=== PATIENT | male | born 1970 | race Caucasian/White ===

== ENCOUNTER 2024-07-12 22:11 | Emergency (ER) | payer SELFPAY ==
--- OUTSIDE RECORDS SUMMARY | 2024-07-12 22:14 | XMS REPORT | Continuity of Care Document ---
Author Name Unknown Address [address] [facility] [address] [place] [address] [facility] thconnect Address [address] [facility]. [address] [place] [address] Care Team Providers Care Youth Worker Name Role Phone CAL CARREON Primary Care Physician Aryan saleh RADIOLOGY Attending Clinician Unavailable Radiology Attending Clinician Unavailable ALICIA MERCADO Attending Clinician Unavailable BRITT GARCIA Admitting Clinician Unavailable Payers Payer Name Policy Type Policy Number Effective Date Expirati on Date Source [facility] [id number] 2020 00:00:00 Allergies, Adverse Reactions, Alerts Allergy Name Allergy Type Status Severity Reaction(s) Onset Date Inactive Date Treating Clinician Comments Source NO KNOWN ALLERGIE S Drug Class Active [facility] Social History Social Habit Start Date Stop Date Quantity Comments Source Sexual orientation [facility] Sex Assigned At 1970 00:00:00 1970 00:00:00 [facility] Smoking Status Start Date Stop Date Source Tobacco smoking consumption unknown [facility] Medications Ordered Medication Name Filled Medication Name Start Date Stop Date Current Medication? Ordering Clinician Indication Dosage Frequency Signature (SIG) Comments Components Source cefTRIAXone (ROCEPHIN) 1,000 mg in NaCl 0.9% (NS) 100 mL MINI-BAG 2022-07 23:00: 00 05-29 01:39 :00 No 1000mg 1,000 mg, IV Piggyback, ONCE, 1 dose, On Sun05/28/23 at 1700, Administer over 30 Minutes, 100 mL
Reas on for Anti-Infec tive: Documented Infection< br>Documen juli Infection Site: Urine
D uration of Therapy: 10 days [facility] sodium chloride (NS) injection 5 mL 2022-07 21:33: 53 Yes 5mL 5 mL, Intravenou s, PRN, Starting on 05/28/23 at 1533, Until Discontinu ed, Routine, IV line flushing [facility] ciprofloxac in HCl 500 mg tablet 2022-07 00:00: 00 06-08 05:59 :00 No [id number] 500mg Take 1 tablet by mouth in the morning and 1 tablet in the evening. Do all this for 10 days. [facility] Immunizations Ordered Immunization Name Filled Immunization Name Date Status Comments Source SARS-COV-2 COVID-19 PFIZER VACCINE Unknown Completed [facility] SARS-COV-2 COVID-19 PFIZER VACCINE Unknown Completed [facility] Vital Signs Vital Name Observation Time Observation Value Comments S ource Systolic blood pressure 2023-05-29 02:00:00 167 mm[Hg] [facility] Diastolic blood pressure 2023-05-29 02:00:00 86 mm[Hg] [facility] Heart rate 2023-05-29 02:00:00 92 /min [facility] Body temperature 2023-05-29 02:00:00 37.67 Lisette [facility] Respiratory rate 2023-05-29 02:00:00 16 /min [facility] Oxygen saturation in Arterial blood by Pulse oximetry 2023-05-29 02:00:00 98 /min [facility] Body height 2023-05-28 20:48:00 182.9 cm [facility] Body weight 2023-05-28 20:48:00 120.203 kg [facility] BMI 2023-05-28 20:48:00 35.94 kg/m2 [facility] Procedures Procedure Date / Time Performed Performing Clinician Source CT TEMPORAL BONES WO CONTRAST 2023-06-25 14:32:04 Britt Garcia [facility] PATIENT FINANCIAL POLICY 2023-06-25 13:34:46 Doctor Unassigned, [place] [facility] NO SHOW OR MISSED APPOINTMENT POLICY ACKNOWLEDGEMENT 2023-06-25 13:34:22 Doctor Unassigned, [place] [facility] CONSENT/REFUSAL FOR DIAGNOSIS AND TREATMENT 2023-06-25 13:34:01 Doctor Unassigned, [place] [facility] ASSIGNMENT OF BENEFITS 2023-06-25 13:33:44 Docto r Unassigned, [place] [facility] LIPASE 2023-05-28 22:15:00 Alicia Mercado [facility] COMP. METABOLIC PANEL ([id number]) 2023-05-28 22:15:00 Alicia Mercado [facility] CBC WITH DIFF 2023-05-28 22:15:00 Alicia Mercado [facility] ASSIGNMENT OF BENEFITS 2023-05-28 21:45:24 Docto r Unassigned, [place] [facility] URINALYSIS 2023-05-28 21:24:00 Alicia Mercado [facility] NOTICE OF PRIVACY PRACTICES 2023-05-28 20:39:03 Doctor Unassigned, [place] [facility] CONSENT/REFUSAL FOR DIAGNOSIS AND TREATMENT 2023-05-28 20:38:29 Doctor Unassigned, [place] [facility] Encounters Start Date/Time End Date/Time Encounter Type Admission Type Attending [facility] Care Facility Care Department Encounter ID Source 2023-06-25 07:36:53 2023-06-25 23:59:00 Outpatient R RADIOLOGY [facility] [id number] [facility] 2023-06-25 07:36:53 2023-06-25 23:59:00 Hospital Encounter Radiology [facility] [id number] [facility] 2023-05-28 14:52:00 2023-05-28 20:16:00 Emergency X ALICIA MERCADO ERT [id number] [facility] 2023-05-28 14:52:00 2023-05-28 20:16:00 Emergency Alicia Mercado [facility] [id number] [facility] Results Test Description Test Time Test Comments Results Result Co mments Source [id number] 22:52:19* Test Item Value Reference Range Interpretation Comme nts LIPASE (test code = 9983205665) 96 U/L 0-220 Lab Interpretation (test cod e = 67386-5) Normal [facility] [id number] 22:43:58* Test Item Value Reference Range Interpretation Comme nts WBC (test code = 6690-2) 10.41 See_Comment [Automated messa ge] The system which generated this result transmitted reference range: 4.20 - 10.70 10*3/?L. The reference range was not used to interpret this result as normal/abnormal. RBC (test code = 789-8) 4.02 See_Comment L [Automated messa ge] The system which generated this result transmitted reference range: 4.26 - 5.52 10*6/?L. The reference range was not used to interpret this result as normal/abnormal. HGB (test code = 718-7) 15.7 g/dL 12.2-16.4 HCT (test code = 4544-3) 44.2 % 38.4-49.3 MCV (test code = 787-2) 110.0 fL 81.7-95.6 H MCH (test code = 785-6) 39.1 pg 26.1-32.7 H MCHC (test code = 786-4) 35.5 g/dL 31.2-35.0 H RDW-SD (test code = 95977-6) 58.9 fL 38.5-51.6 H RDW-CV (test code = 788-0) 14.4 % 12.1-15.4 PLT (test code = 777-3) 189 See_Comment [Automated messa ge] The system which generated this result transmitted reference range: 150 - 328 10*3/?L. The reference range was not used to interpret this result as normal/abnormal. MPV (test code = 97103-4) 9.5 fL 9.8-13.0 L NRBC/100 WBC (test code = 2059415541) 0.0 See_Comment [Automated me ssage] The system which generated this result transmitted reference range: 0.0 - 10.0 /100 WBCs. The reference range was not used to interpret this result as normal/abnormal. NRBC x10^3 (test code = 2217206394) See_Comment [Automated messa ge] The system which generated this result transmitted reference range: 10*3/?L. The reference range was not used to interpret this result as normal/abnormal. GRAN MAT (NEUT) % (test code = 770-8) 74.3 % IMM GRAN % (test code = 4831547527) 0.60 % LYMPH % (test code = 736-9) 14.0 % MONO % (test code = 5905-5) 9.3 % EOS % (test code = 713-8) 1.4 % BASO % (test code = 706-2) 0.4 % GRAN MAT x10^3(ANC) (test code = 9387164705) 7.73 10*3/uL 1.99-6.95 H IMM GRAN x10^3 (test code = 3936146039) 0.06 10*3/uL 0.00-0.06 LYMPH x10^3 (test code = 731-0) 1.46 10*3/uL 1.09-3.23 MONO x10^3 (test code = 742-7) 0.97 10*3/uL 0.36-1.02 EOS x10^3 (test code = 711-2) 0.15 10*3/uL 0.06-0.53 BASO x10^3 (test code = 704-7) 0.04 10*3/uL 0.01-0.09 Lab Interpretation (test code = 14837-8) Abnormal [facility]
[2024-07-12] MEDS ORDERED: ONDANSETRON 4 MG/2 ML VIAL ONE (23:08)
[2024-07-12] MEDS ORDERED: NA CHLORIDE 0.9% 2,000 ML ONE (23:09)
[2024-07-12] MEDS ORDERED: FAMOTIDINE 20 MG/2 ML VIAL IV ONE (23:09)
[2024-07-12] MEDS ORDERED: PANTOPRAZOLE 40 MG INJ ONE (23:09)
[2024-07-12] MEDS ORDERED: TRANEXAMIC ACID 1,000 MG/10 ML VIAL IV ONE (23:09)
[2024-07-12] MEDS ORDERED: NA CHLORIDE 0.9% 250 ML ONE (23:09)
[2024-07-12] MEDS ORDERED: NA CHLORIDE 0.9% 100 ML ONE (23:10)
[2024-07-12 23:29] LABS: Absolute Lymphocytes (CBC) 0.7 K/uL (0.7-4.9); Absolute Monocytes 0.8 K/uL (0.1-1.3); Basophils % 0.3 % (0-1.3); Eosinophils % 0.3 % (0-4.4); Hematocrit 24.2 % (39.6-49.0); Hemoglobin 8.4 g/dL (13.6-17.9); Lymphocytes % 4.4 % (15.3-44.8); MCH 44.8 pg (27.0-35.0); MCHC 34.6 g/dL (32.0-36.0); MCV 129.6 fL (80-100); MPV 9.2 fL (7.6-11.3); Monocytes % 5.2 % (3.3-12.3); Neutrophils % 89.8 % (41.7-73.7); Nucleated Red Blood Cells % 0.2 % (0-0); Platelets 219 thou/uL (152-406); RBC Red Blood Cell Count 1.87 M/uL (4.33-5.43); Red Cell Distribution Width 16.9 % (12.1-15.2)
[2024-07-12 23:37] LABS: Albumin 1.4 g/dL (3.4-5.0); Albumin/Globulin Ratio 0.3 (1.1-1.8); Anion Gap 21.9 mEq/L (5.0-15.0); Bilirubin Total 10.7 mg/dL (0.2-1.0); Globulin 4.1 g/dL (2.3-3.5); Potassium 3.9 mEq/L (3.5-5.1); Protein, Total 5.5 g/dL (6.4-8.2)
[2024-07-12] MEDS ORDERED: ALBUMIN HUMAN 25% 100 ML IV ONE (23:39)
[2024-07-12 23:40] LABS: PT Prothrombin Time 24.2 SECONDS (9.4-12.5); PTT, Activated Partial Thromb 43.9 SECONDS (24.3-36.9); Protime INR 2.21
[2024-07-13] MEDS ORDERED: NA CHLORIDE 0.9% 250 ML ONE (00:23)
[2024-07-13] MEDS ORDERED: NA CHLORIDE 0.9% 500 ML ONE ×2 (00:43→01:56)
--- NOTE | 2024-07-13 01:13 | RAD REPORT ---
EXAM: CT Chest, Abdomen and Pelvis Without Intravenous Contrast CLINICAL HISTORY: The patient is 53 years old and is Male; ABDOMINAL DISTENTION TECHNIQUE: Axial computed tomography images of the chest, abdomen and pelvis without intravenous contrast. S agittal and coronal reformatted images were created and reviewed. This CT exam was performed using one or more of the following dose reduction techniques: automated exposure control, adjustmen t of the mA and/or kV according to patient size, and/or use of iterative reconstruction technique. COMPARISON: No relevant prior studies available. FINDINGS: CHEST: LUNGS: Atelectasis within the right lower lobe is noted. The lungs are otherwise well-inflated an d clear. PLEURAL SPACE: A large right pleural effusion is present. A trace left pleural effusion is noted. No pneumothorax. HEART: No cardiomegaly. No pericardial effusion. ABDOMEN: LIVER: The liver is enlarged and heterogeneous. Subtle low attenuating lesions are scattered thro ughout the liver. GALLBLADDER AND BILE DUCTS: Multiple calcified gallstones are present within the gallbladder. The re is no ductal dilatation. PANCREAS: Unremarkable. No ductal dilation. SPLEEN: The spleen is enlarged. ADRENALS: Unremarkable. No mass. KIDNEYS AND URETERS: No obstructing stones. No hydronephrosis. No perinephric fluid. STOMACH AND BOWEL: The stomach is minimally distended with food contents. The small bowel is norm al in caliber. Stool is present throughout the colon. Scattered colonic diverticula are noted without surrounding inflammation. There is no mucosal thickening or evidence of obstruction. PELVIS: APPENDIX: The appendix is normal in caliber without surrounding inflammation. BLADDER: A Dalton catheter is present within the bladder which is decompressed. No stones. REPRODUCTIVE: Unremarkable as visualized. CHEST, ABDOMEN and PELVIS: INTRAPERITONEAL SPACE: A moderate to large amount of ascites is present throughout the abdomen an d pelvis. No free air. BONES/JOINTS: Multilevel degenerative changes spine is present. There is no acute fracture. SOFT TISSUES: Mild body wall edema is present. A fluid containing umbilical hernia is present. Subcutaneous air along the left gluteal fold is present. Ill-defined fluid and air collection along the left perineum measuring approximately 2.4 x 1.7 cm is present. VASCULATURE: Atherosclerosis of the vasculature is present. The vessels are normal in caliber. No aortic aneurysm. LYMPH NODES: Unremarkable. No enlarged lymph nodes. TUBES, LINES AND DEVICES: A right IJ central venous catheter is present with the tip in the SVC. IMPRESSION: 1. Findings suggest left perineal abscess with subcutaneous air along the left gluteal fold. Underl coco developing Robbie gangrene is within the differential. 2. Innumerable ill-defined low attenuating lesions throughout the liver. These are not clearly cyst s. Within the differential includes multiple metastatic foci. Correlation with patient history and further evaluation is recommended. 3. Large right pleural effusion with associated right lower lobe atelectasis. 4. Large volume ascites with hepatosplenomegaly. 5. Cholelithiasis. Electronically signed by: Kassidy Buckner MD 07/13/2024 01:00 AM [facility] Due to temporary technical issues with the [employer] reporting system, reports are being pipo d by the in-house radiologist without review as a courtesy to ensure prompt reporting the interpreting radiologist is fully responsible for the content of the report. Transcribed Date/Time: 07/13/2024 1:13 AM
[2024-07-13] MEDS ORDERED: NOREPINEPHRINE BITARTRATE/D5W 4 MG/250 ML KIT IV ONE ×3 (01:14→05:01)
[2024-07-13 01:15] LABS: Specific Gravity 1.022 (1.005-1.030); Urine Bacteria None Seen /HPF (<20); Urine Bilirubin 2+ (Negative); Urine Blood Trace (Negative); Urine Clarity Extremely Turbid (Clear); Urine Color Dark-Orange (Yellow); Urine Crystals Unidentified Moderate /HPF (None Seen); Urine Culture Reflex Order NOT NEEDED; Urine Glucose TRACE (Negative); Urine Granular Casts 0-5 /LPF (None Seen); Urine Ketones NEGATIVE (Negative); Urine Microscopic Reflex YN ORDER UMIC; Urine Mucus 1+ /HPF (None Seen); Urine Nitrite NEGATIVE (Negative); Urine Protein TRACE (Negative); Urine RBC <5 /HPF (None Seen); Urine Urobilinogen 2+ (Normal)
[2024-07-13 01:16] LABS: Barbiturates NEGATIVE (NEGATIVE); Benzodiazepines NEGATIVE (NEGATIVE); Cocaine NEGATIVE (NEGATIVE); METHAMPHETAM NEGATIVE (NEGATIVE); Methadone NEGATIVE (NEGATIVE); Opiates NEGATIVE (NEGATIVE); Phencyclidine NEGATIVE (NEGATIVE); THC Cannibis NEGATIVE (NEGATIVE)
--- NOTE | 2024-07-13 01:51 | EDPHYS ---
Physician Documentation [facility] Name: Sushil Power Age: 53 yrs Sex: Male : 1970 Arrival Date: 07/12/2024 Time: 22:11 Bed 3 Private MD: ED Physician Kamlesh Keenan HPI: 07/12 22:23 This 53 yrs old Male presents to ER via Unassigned with complaints of LOW sp4 BLOOD PRESSURE. 07/13 01:38 53-year-old male with history of alcoholism and hypertension presents with acute sp4 gastrointestinal bleed. Patient states he was sitting on the commode and nearly passed out. Patient reported rectal bleeding and bloody stools. On arrival patient is jaundiced and has prominent icterus. Patient states she developed jaundice approximately Thanksgiving in May. Reported sporadic bloody stools since then.. Historical: - Allergies: 07/12 22:25 No Known Allergies; ha1 - PMHx: 22:25 Alcoholism; Hypertensive disorder; ha1 - Immunization history:: Adult Immunizations not up to date. - Infectious Disease History:: Denies. - Social history:: Smoking status: Patient reports the use of cigarette tobacco products, smokes one-half pack cigarettes per day. - Family history:: not pertinent. - Unable to obtain history due to: altered mental status. ROS: 07/13 01:38 Constitutional: Negative for fever, chills, and weight loss, positive for rectal sp4 bleeding, positive for near syncope, positive for jaundice, positive for bloody stools All other systems are negative, Exam: 01:38 Constitutional: Ill-appearing male, diffusely jaundiced, toxic appearing, hypotensive sp4 on arrival, confused and delirious , initial exam reveals dark red blood per rectum Head/Face: Normocephalic, atraumatic. Eyes: Pupils equal round and reactive to light, extra-ocular motions intact. Lids and lashes normal. Conjunctiva -prominent icterus. cornea within normal limits. Periorbital areas with no swelling, redness, or edema. ENT: Nares patent. No nasal discharge, no septal abnormalities noted. Tympanic membranes are normal and external auditory canals are clear. Oropharynx with no redness, swelling, or masses, exudates, or evidence of obstruction, uvula midline. Mucous membranes moist. Neck: Trachea midline, no thyromegaly or masses palpated, and no cervical lymphadenopathy. Supple, full range of motion without nuchal rigidity, or vertebral point tenderness. Chest/axilla: Normal chest wall appearance and motion. Nontender with no deformity. No lesions are appreciated. Cardiovascular: Regular rate and rhythm with a normal S1 and S2. No gallops, murmurs, or rubs. Normal PMI, no JVD. No pulse deficits. Respiratory: Lungs have equal breath sounds bilaterally, clear to auscultation and percussion. No rales, rhonchi or wheezes noted. No increased work of breathing, no retractions or nasal flaring. Abdomen/GI: Soft, with normal bowel sounds. No distension or tympany. No guarding or rebound. Diffuse ascites and abdominal distention, caput medusa Back: No spinal tenderness. No costovertebral tenderness. Male : Normal genitalia with no discharge, normal exam of the scrotum, exam of perineum reveals left perineal lesion oozing bloody fluid, there is some crepitation, diffuse perineal redness and swelling. Tenderness to palpation. No sign of drainable abscess. Skin: Warm, dry with normal turgor. Normal color with no rashes, no lesions, and no evidence of cellulitis. MS/ Extremity: Pulses equal, no cyanosis. Neurovascular intact. Full, normal range of motion. Neuro: Awake and alert, GCS 15, oriented to person, place,. Cranial nerves II-XII grossly intact. Motor strength 5/5 in all extremities. Sensory grossly intact. No sign of localized deficits Psych: Awake, alert, with orientation to person, place generally confused 01:38 ECG was reviewed by the Attending Physician. EKG at 0 136 prolonged QT sinus rhythm rate 92 Vital Signs: 07/12 22:12 BP 121 / 102; Pulse 102; Resp 19 S; Temp 98.6(O); Pulse Ox 96% on R/A; Weight 111.13 ha1 kg; Height 5 ft. 11 in. ; 22:15 BP 87 / 44; Pulse 95; Resp 17; Pulse Ox 98% on R/A; kmf 22:20 BP 95 / 41; Pulse 94; Resp 16; Pulse Ox 97% on R/A; kmf 23:47 BP 89 / 53; Pulse 87; Resp 19; Temp 98.6; Pulse Ox 97% ; Pain 0/10; bm8 05 01:10 BP 69 / 52; Pulse 88; Resp 17; Temp 98.8; Pulse Ox 100% on 4 lpm NC; Pain 0/10; bm8 01:23 BP 111 / 55; Pulse 88; Resp 18; Temp 98.8; Pulse Ox 100% on 4 lpm NC; Pain 0/10; bm8 01:41 BP 131 / 97; Pulse 92; Resp 15; Pulse Ox 100% on 4 lpm NC; kmf 02:19 BP 132 / 53; Pulse 94; Resp 18; Temp 98.8; Pulse Ox 100% ; Pain 0/10; bm8 04:08 BP 103 / 65; Pulse 99; Resp 18; Temp 98.9; Pulse Ox 100% on 4 lpm NC; Pain 0/10; bm8 05:05 BP 101 / 50; Pulse 88; Resp 19; Temp 98.8; Pulse Ox 100% on 4 lpm NC; Pain 0/10; bm8 07/12 22:12 Body Mass Index 34.17 (111.13 kg, 180.34 cm) ha1 23:47 Pain Scale: Adult bm8 01/05 01:10 Pain Scale: Adult bm8 01:23 Pain Scale: Adult bm8 02:19 Pain Scale: Adult bm8 04:08 Pain Scale: Adult bm8 05:05 Pain Scale: Adult bm8 Mac Coma Score: 07/12 23:42 Eye Response: spontaneous(4). Motor Response: obeys commands(6). Verbal Response: bm8 oriented(5). Total: 15. 23:47 Eye Response: spontaneous(4). Motor Response: obeys commands(6). Verbal Response: bm8 oriented(5). Total: 15. 05 01:15 Eye Response: spontaneous(4). Motor Response: obeys commands(6). Verbal Response: bm8 oriented(5). Total: 15. 01:23 Eye Response: spontaneous(4). Motor Response: obeys commands(6). Verbal Response: bm8 oriented(5). Total: 15. 01:38 Eye Response: spontaneous(4). Motor Response: obeys commands(6). Verbal Response: sp4 confused(4). Total: 14. 02:19 Eye Response: spontaneous(4). Motor Response: obeys commands(6). Verbal Response: bm8 oriented(5). Total: 15. 04:08 Eye Response: spontaneous(4). Motor Response: obeys commands(6). Verbal Response: bm8 oriented(5). Total: 15. 05:05 Eye Response: spontaneous(4). Motor Response: obeys commands(6). Verbal Response: bm8 oriented(5). Total: 15. Procedures: 07/12 23:03 Central Line: the site was prepped with Betadine, in sterile fashion, a triple lumen sp4 catheter was inserted, in the right internal jugular vein, in 1 attempts. placement was verified, by CXR, by blood return, Ultrasound-guided central line. , the site was dressed with 4X4s, Tegaderm, using sterile technique, the patient tolerated the procedure, well, Ultrasound-guided central line placed secondary to exhausted peripheral access. MDM: 22:25 Medical Screening Exam initiated sp4 07/13 01:36 ED course: COMPARISON: No relevant prior studies available. FINDINGS: CHEST: LUNGS: sp4 Atelectasis within the right lower lobe is noted. The lungs are otherwise well-inflated and clear. PLEURAL SPACE: A large right pleural effusion is present. A trace left pleural effusion is noted. No pneumothorax. HEART: No cardiomegaly. No pericardial effusion. ABDOMEN: LIVER: The liver is enlarged and heterogeneous. Subtle low attenuating lesions are scattered throughout the liver. GALLBLADDER AND BILE DUCTS: Multiple calcified gallstones are present within the gallbladder. There is no ductal dilatation. PANCREAS: Unremarkable. No ductal dilation. SPLEEN: The spleen is enlarged. ADRENALS: Unremarkable. No mass. KIDNEYS AND URETERS: No obstructing stones. No hydronephrosis. No perinephric fluid. STOMACH AND BOWEL: The stomach is minimally distended with food contents. The small bowel is normal in caliber. Stool is present throughout the colon. Scattered colonic diverticula are noted without surrounding inflammation. There is no mucosal thickening or evidence of obstruction. PELVIS: APPENDIX: The appendix is normal in caliber without surrounding inflammation. BLADDER: A Dalton catheter is present within the bladder which is decompressed. No stones. REPRODUCTIVE: Unremarkable as visualized. CHEST, ABDOMEN and PELVIS: INTRAPERITONEAL SPACE: A moderate to large amount of ascites is present throughout the abdomen and pelvis. No free air. BONES/JOINTS: Multilevel degenerative changes spine is present. There is no acute fracture. SOFT TISSUES: Mild body wall edema is present. A fluid containing umbilical hernia is present. Subcutaneous air along the left gluteal fold is present. Ill-defined fluid and air collection along the left perineum measuring approximately 2.4 x 1.7 cm is present. VASCULATURE: Atherosclerosis of the vasculature is present. The vessels are normal in caliber. No aortic aneurysm. LYMPH NODES: Unremarkable. No enlarged lymph nodes. TUBES, LINES AND DEVICES: A right IJ central venous catheter is present with the tip in the SVC. IMPRESSION: 1. Findings suggest left perineal abscess with subcutaneous air along the left gluteal fold. Underlying developing Robbie gangrene is within the differential. 2. Innumerable ill-defined low attenuating lesions throughout the liver. These are not clearly cysts. Within the differential includes multiple metastatic foci. Correlation with patient history and further evaluation is recommended. 3. Large right pleural effusion with associated right lower lobe atelectasis. 4. Large volume ascites with hepatosplenomegaly. 5. Cholelithiasis. Electronically signed by: Kassidy Buckner MD 07/13/2024 01:00 AM [facility]OLE[facility]LOOR [facility]ER . ED course: CLINICAL HISTORY: Right central line. COMPARISON: None. TECHNIQUE: XR CHEST 1 VIEW 07/12/2024 11:03 PM LINOLEUM FLOOR LAYER FINDINGS: Cardiac silhouette is normal in size. There is probable right basilar airspace disease. There is a moderate right pleural effusion. There is no pneumothorax. There are no acute osseous findings. Right IJ central line tip is in the mid SVC. IMPRESSION: No pneumothorax following right IJ central line placement.. 01:45 Differential diagnosis: asthma, Bronchitis CHF exacerbation, Chronic Obstructive sp4 Pulmonary Disease Myocardial Infarction pneumonia, Pneumothorax pulmonary edema. Antibiotic administration: Vancomycin and cefepime administered. Data reviewed: vital signs, nurses notes, EMS record, old medical records, lab test result(s), EKG, radiologic studies, CT scan, plain films. Consideration of Admission/Observation Patient was admitted/placed on observation. Escalation of care including admission/observation considered. Management of patient was discussed with the following: Multilith Operator: [facility] [place]'s attending physician. ED course: Patient found to have anemia, active lower GI bleed, 2 units of packed red cells transfused emergently. Additionally we have hepatorenal failure, right pleural effusion, also signs of a left perineal abscess with subcutaneous air. Possibly necrotizing fasciitis. Additionally there is multiple liver lesions suggestive of metastatic disease, right pleural effusion is large and associated with atelectasis. Large volume ascites and hepatosplenomegaly, patient warrants emergent transfer for higher level of care for consultation with general surgery, additional consultation with hepatology intensive care management and also consultation with nephrology.. 02:46 ED course: CT SOFT TISSUES: Mild body wall edema is present. A fluid containing sp4 umbilical hernia is present. Subcutaneous air along the left gluteal fold is present. Ill-defined fluid and air collection along the left perineum measuring approximately 2.4 x 1.7 cm is present. . ED course: I had discussion with [facility] with general surgery service and intensive care. The patient was accepted for transfer at this time patient stable for aeromedical transfer. Last blood pressure 128/55.. 07/12 22:26 Order name: Type And Screen [facility] 07/12 22:26 Order name: CBC with Diff; Complete Time: 04:32 [facility] 07/12 22:26 Order name: CMP; Complete Time: 00: 4 07/12 22:26 Order name: Lipase; Complete Time: 00: 4 07/12 22:26 Order name: Urinalysis w/ reflexes; Complete Time: : 4 07/12 22:26 Order name: PT-INR; Complete Time: 00: 4 07/12 22:26 Order name: Ptt, Activated; Complete Time: 00: 4 07/12 22:26 Order name: AMMONIA; Complete Time: 00: 4 07/12 22:29 Order name: Alcohol Level; Complete Time: 00: 4 07/12 22:29 Order name: Urine Drug Screen; Complete Time: : 4 07/13 00:17 Order name: Packed RBC Leukored EDND 07/13 01:20 Order name: ABO/RH no charge; Complete Time: : EDMS 07/13 04:23 Order name: CBC Smear Scan; Complete Time: 04:32 EDMS 07/12 23:03 Order name: Chest Single View XRAY sp4 07/13 00:01 Order name: Chest Abd Pelvis Wo Con; Complete Time: : EDMS 07/13 01:29 Order name: EKG; Complete Time: 01:30 sp4 07/12 22:26 Order name: IV Saline Lock; Complete Time: 23:41 sp4 07/12 22:26 Order name: Labs collected and sent; Complete Time: 23:41 sp4 07/12 22:30 Order name: Central Line Dressing Kit; Complete Time: 23: sp4 07/12 22:30 Order name: Central Line Kit; Complete Time: 23: sp4 07/12 22:30 Order name: Chlorhexidine prep; Complete Time: 23: sp4 07/12 22:30 Order name: Consent for central line completed; Complete Time: 23:02 sp4 07/12 22:30 Order name: Line Caps x3; Complete Time: 23: sp4 07/12 22:30 Order name: NS Flushes x3; Complete Time: 23:02 sp4 07/12 22:30 Order name: Sterile Gloves; Complete Time: 23: sp4 07/12 22:30 Order name: Sterile Probe Cover; Complete Time: 23: sp4 07/13 01:30 Order name: EKG - Nurse/Tech; Complete Time: 01:45 sp4 07/13 01:54 Order name: Misc. Order: change fluids to D5; Complete Time: 02:16 sp4 EC:36 Rate is 92 beats/min. Rhythm is regular, Sinus Rhythm. QRS [place] is Normal. [place] interval sp4 is shortened. QRS interval is normal. QT interval is prolonged. No Q waves. T waves are Normal. No ST changes noted. Clinical impression: No evidence of ischemia. Interpreted by me. Reviewed by me. Administered Medications: 07/12 23:01 Not Given (Physician Discretion): mupirocinointment 2 % 1 application Topical bm8 continuous; Pea sized amount to both nares 23:35 Drug: NS 0.9% IV 1000 ml IV at 1 bolus Per protocol; to be given as a bolus over 60 bm8 minutes Route: IV; Rate: 1 bolus; Site: right antecubital; 07/13 02:16 Follow up: Response: No adverse reaction; IV Status: Completed infusion; IV Intake: bm8 1000ml 07/12 23:39 Drug: tranexamic acid 1000 mg IV at calculated rate once; administer at a rate not to bm8 exceed 100 mg per min Route: IV; Rate: calculated rate; Site: Other; 07/13 02:17 Follow up: Response: No adverse reaction; IV Status: Completed infusion; IV Intake: bm8 100ml 07/12 23:40 Drug: Pantoprazole IV 8 mg/hr IV at 25 ml/hr continuous; (Standard dilution is 80 mg in bm8 250 mL NS) Route: IV; Rate: 25 ml/hr; Site: Other; 07/13 05:08 Follow up: Response: No adverse reaction; IV Status: Infusion continued upon transfer [facility] 07/12 23:41 Drug: Famotidine IVP 20 mg IVP once; dilute with 10 mL 0.9% NaCl; give over 2 minutes bm8 Route: IVP; Site: right antecubital; 07/13 02:18 Follow up: Response: No adverse reaction [facility] 07/12 23:41 Drug: Ondansetron IVP 4 mg IVP once; over 2 minutes Route: IVP; Site: right antecubital;[facility] 07/13 02:18 Follow up: Response: No adverse reaction [facility] 07/12 23:41 Drug: Pantoprazole IVP 80 mg IVP once Route: IVP; Site: right antecubital; [facility] 07/13 02:18 Follow up: Response: No adverse reaction [facility] 07/12 23:41 Drug: NS 0.9% IV 1000 ml IV at 125 ml/hr Per protocol; to be given as a bolus over 60 bm8 minutes Route: IV; Rate: 125 ml/hr; Site: right antecubital; 07/13 02:17 Follow up: Response: No adverse reaction; IV Status: Order to discontinue infusion; IV bm8 Intake: 500ml 00:20 Drug: Albumin IVPB 25 grams 100 ml IVPB once; (Note: Albumin 25% concentration) Volume: bm8 100 ml; Route: IVPB; Site: Other; 02:18 Follow up: Response: No adverse reaction; IV Status: Completed infusion; IV Intake: bm8 100ml 01:19 Drug: Norepinephrine IV 0.1 mcg/kg/min IV at calculated rate See Administration bm8 Instructions; (Standard concentration 4 mg / 250 mL D5W); Recommended max rate 3 mcg/kg/min; Titrate 0.05 mcg/kg/min as often as every 5 minutes to achieve goal (see titration policy); Goal parameter MAP greater than 65 mmHg. Route: IV; Rate: calculated rate; Site: Other; 05:08 Follow up: Response: No adverse reaction; IV Status: Infusion continued upon transfer bm8 02:15 Drug: D5-NS IV 1000 ml IV at 125 ml/hr continuous Route: IV; Rate: 125 ml/hr; Site: [facility] right antecubital; 05:08 Follow up: Response: No adverse reaction; IV Status: Infusion continued upon transfer 8 02:16 Drug: Cefepime IVPB 2 grams IVPB at 200 ml/hr once over 30 mins; (mix in NS 100 mL) bm8 Route: IVPB; Rate: 200 ml/hr; Infused Over: 30 mins; Site: right antecubital; 02:57 Follow up: Response: No adverse reaction; IV Status: Completed infusion; IV Intake: bm8 100ml 02:29 Drug: Calcium Gluconate IVPB 2 grams IVPB once over 60 mins; (mix in NS 100 mL) Route: bm8 IVPB; Infused Over: 60 mins; Site: Other; 05:07 Follow up: Response: No adverse reaction; IV Status: Completed infusion; IV Intake: bm8 100ml 02:58 Drug: vancoMYCIN IVPB 2 grams IVPB at calculated rate once Route: IVPB; Rate: bm8 calculated rate; Site: right antecubital; 05:08 Follow up: Response: No adverse reaction; IV Status: Infusion continued upon transfer bm8 Disposition: 01:48 Critical Care:. sp4 Disposition Summary: 07/13/24 01:50 Transfer Ordered Notes: Transfer Location: [facility] sp4 Reason: Higher level of care sp4 Condition: Critical sp4 Problem: new sp4 Symptoms: have improved sp4 [facility] [place](07/13/24 05:10) bm8 Diagnosis - GI Bleed/ Gastrointestinal hemorrhage, unspecified sp4 - Acute liver failure, acute renal failure, left perineal abscess with necrotizing sp4 fasciitis, hemorrhagic shock, acute lower GI bleed, right pleural effusion, multiple liver lesions, large volume ascites, acute toxic encephalopathy - Severe sepsis with septic shock sp4 Forms: - Medication Reconciliation Form sp4 - SBAR form sp4 Critical care time excluding procedures: 01:48 Critical care time: Bedside Care: 46 minutes, Consultation: 12 minutes, Family sp4 Intervention: 12 minutes. Total time: 70 minutes Signatures: Dispatcher [employer] EDMS Sabrina Saavedra, RN RN ha1 Kamlesh Keenan MD MD sp4 Juan José Green RN RN bm8 Corrections: (The following items were deleted from the chart) 07/12 22:27 22:27 AMMONIA+C.LAB.BRZ ordered. EDMS EDMS 23:03 23:03 Chest Single View+RAD.RAD.BRZ ordered. EDMS EDMS 23:18 22:26 Urinalysis+U.LAB.BRZ ordered. EDMS EDMS 07/13 00:01 07/12 22:28 Chest Abdomen Pelvis W Con+CT.RAD.BRZ ordered. EDMS EDMS 07/13 00:24 00:02 PACKED RBC LEUKORED+BB.LAB.BRZ ordered. EDMS EDMS 00:24 00:04 ABO/RH typing ordered. EDMS EDMS 00:24 00:04 Antibody Screen ordered. EDMS EDMS 00:52 07/12 22:29 Urinalysis W/Microscopic+U.LAB.BRZ ordered. EDMS EDMS 07/13 01:51 01:50 [facility]'s attending sp4 sp4 05:10 01:51 [facility]'s attending sp4 bm8
--- NOTE | 2024-07-13 01:51 | ER ---
Nurse's Notes [facility] Name: Sushil Power Age: 53 yrs Sex: Male : 1970 Arrival Date: 07/12/2024 Time: 22:11 Bed 3 Private MD: Diagnosis: GI Bleed/ Gastrointestinal hemorrhage, unspecified;Acute liver failure, acute renal failure, left perineal abscess with necrotizing fasciitis, hemorrhagic shock, acute lower GI bleed, right pleural effusion, multiple liver lesions, large volume ascites, acute toxic encephalopathy;Severe sepsis with septic shock Presentation: 07/12 22:12 Chief complaint: EMS states: BLOODY STOOLS FOR OVER A WEEK, WEAKNESS. ON OUR ARRIVAL BP ha1 57/46 . 1000 MLS OF NS WERE GIVEN NOW BP 108/60. 22:12 Coronavirus screen: At this time, the client does not indicate any symptoms associated ha1 with coronavirus-19. Ebola Screen: No symptoms or risks identified at this time. Initial Sepsis Screen: Does the patient meet any 2 criteria? Yes Does the patient have a suspected source of infection? No. Patient's initial sepsis screen is negative. Risk Assessment: Do you want to hurt yourself or someone else? Patient reports no desire to harm self or others. Onset of symptoms was July 12, 2024. 22:12 Method Of Arrival: EMS: [facility] ha1 22:12 Acuity: BALDEV 2 ha1 Historical: - Allergies: 22:25 No Known Allergies; ha1 - PMHx: 22:25 Alcoholism; Hypertensive disorder; ha1 - Immunization history:: Adult Immunizations not up to date. - Infectious Disease History:: Denies. - Social history:: Smoking status: Patient reports the use of cigarette tobacco products, smokes one-half pack cigarettes per day. - Family history:: not pertinent. - Unable to obtain history due to: altered mental status. Screenin:47 [facility] ED Fall Risk Assessment (Adult) History of falling in the last 3 months, bm8 including since admission Yes- fall prone (multiple falls) (3 pts) Confusion or Disorientation No (0 pts) Intoxicated or Sedated No (0 pts) Impaired Gait No (0 pts) Mobility Assist Device Used No (0 pt) Altered Elimination No (0 pt) Score/Fall Risk Level 0 - 2 = Low Risk Oriented to surroundings, Maintained a safe environment, Educated pt \T\ family on fall prevention, incl call for assistance when getting out of bed, Assessed \T\ reinforced patient's understanding of fall precautions, Hourly rounding (assess needs \T\ fall precautionary measures) done, Used ambulatory aids as needed (educated on \T\ assisted with), Used gait belt as appropriate. Abuse screen: Denies threats or abuse. Nutritional screening: No deficits noted. Tuberculosis screening: No symptoms or risk factors identified. Assessment: 23:42 General: Appears in no apparent distress. comfortable, Behavior is calm, cooperative, bm8 appropriate for age. Pain: Denies pain. Neuro: No deficits noted. Level of Consciousness is awake, alert, obeys commands, Oriented to person, place, time, situation, Appropriate for age. Cardiovascular: Heart tones S1 S2 present Capillary refill is > 3 seconds is sluggish in right in left in bilateral fingers toes 2+ - 3+ pitting edema in bilateral lower ext up to knees.. Rhythm is sinus rhythm. Respiratory: Airway is patent Trachea midline Respiratory effort is even, unlabored, Respiratory pattern is regular, symmetrical, Breath sounds are clear bilaterally. GI: Abdomen is round non-distended, obese, discolored, Bowel sounds present X 4 quads. Abd is soft and non tender X 4 quads. Patient currently denies nausea, pain. : No signs and/or symptoms were reported regarding the genitourinary system. EENT: No signs and/or symptoms were reported regarding the EENT system. Derm: Bruising that is bright red, dark purple, green, yellow, bruising is all over body, in different stages of healing. 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 Musculoskeletal: No signs and/or symptoms reported regarding the musculoskeletal system. 07/13 01:23 Reassessment: Patient appears in no apparent distress at this time. Patient and/or bm8 family updated on plan of care and expected duration. Pain level reassessed. Patient is alert, oriented x 3, equal unlabored respirations, skin warm/dry/pink. Patient states feeling better. Patient states symptoms have improved. 02:19 Reassessment: Patient appears in no apparent distress at this time. Patient and/or bm8 family updated on plan of care and expected duration. Pain level reassessed. Patient is alert, oriented x 3, equal unlabored respirations, skin warm/dry/pink. pt is resting with eyes closed breathing is even unlabored, ease to rouse. Pt made aware of need to fly to next hospital due to his condition. Patient denies pain at this time. 04:08 Reassessment: Patient appears in no apparent distress at this time. No changes from bm8 previously documented assessment. Patient and/or family updated on plan of care and expected duration. Pain level reassessed. Patient is alert, oriented x 3, equal unlabored respirations, skin warm/dry/pink. Patient denies pain at this time. Patient states feeling better. Patient states symptoms have improved. 05:05 Reassessment: Patient appears in no apparent distress at this time. No changes from bm8 previously documented assessment. Patient and/or family updated on plan of care and expected duration. Pain level reassessed. Patient is alert, oriented x 3, equal unlabored respirations, skin warm/dry/pink. report to BRADLEY palacios at [facility] Patient denies pain at this time. Vital Signs: 07/12 22:12 BP 121 / 102; Pulse 102; Resp 19 S; Temp 98.6(O); Pulse Ox 96% on R/A; Weight 111.13 ha1 kg; Height 5 ft. 11 in. ; 22:15 BP 87 / 44; Pulse 95; Resp 17; Pulse Ox 98% on R/A; kmf 22:20 BP 95 / 41; Pulse 94; Resp 16; Pulse Ox 97% on R/A; kmf 23:47 BP 89 / 53; Pulse 87; Resp 19; Temp 98.6; Pulse Ox 97% ; Pain 0/10; bm8 / 01:10 BP 69 / 52; Pulse 88; Resp 17; Temp 98.8; Pulse Ox 100% on 4 lpm NC; Pain 0/10; bm8 01:23 BP 111 / 55; Pulse 88; Resp 18; Temp 98.8; Pulse Ox 100% on 4 lpm NC; Pain 0/10; bm8 01:41 BP 131 / 97; Pulse 92; Resp 15; Pulse Ox 100% on 4 lpm NC; kmf 02:19 BP 132 / 53; Pulse 94; Resp 18; Temp 98.8; Pulse Ox 100% ; Pain 0/10; bm8 04:08 BP 103 / 65; Pulse 99; Resp 18; Temp 98.9; Pulse Ox 100% on 4 lpm NC; Pain 0/10; bm8 05:05 BP 101 / 50; Pulse 88; Resp 19; Temp 98.8; Pulse Ox 100% on 4 lpm NC; Pain 0/10; bm8 07/12 22:12 Body Mass Index 34.17 (111.13 kg, 180.34 cm) ha1 23:47 Pain Scale: Adult bm8 07/13 01:10 Pain Scale: Adult bm8 01:23 Pain Scale: Adult bm8 02:19 Pain Scale: Adult bm8 04:08 Pain Scale: Adult bm8 05:05 Pain Scale: Adult bm8 [place] Coma Score: 07/12 23:42 Eye Response: spontaneous(4). Motor Response: obeys commands(6). Verbal Response: bm8 oriented(5). Total: 15. 23:47 Eye Response: spontaneous(4). Motor Response: obeys commands(6). Verbal Response: bm8 oriented(5). Total: 15. /05 01:15 Eye Response: spontaneous(4). Motor Response: obeys commands(6). Verbal Response: bm8 oriented(5). Total: 15. 01:23 Eye Response: spontaneous(4). Motor Response: obeys commands(6). Verbal Response: bm8 oriented(5). Total: 15. 01:38 Eye Response: spontaneous(4). Motor Response: obeys commands(6). Verbal Response: sp4 confused(4). Total: 14. 02:19 Eye Response: spontaneous(4). Motor Response: obeys commands(6). Verbal Response: bm8 oriented(5). Total: 15. 04:08 Eye Response: spontaneous(4). Motor Response: obeys commands(6). Verbal Response: bm8 oriented(5). Total: 15. 05:05 Eye Response: spontaneous(4). Motor Response: obeys commands(6). Verbal Response: bm8 oriented(5). Total: 15. ED Course: 07/12 22:12 Patient arrived in ED. [id number] 22:23 Kamlesh Keenan MD is Attending Physician. sp4 22:25 Triage completed. ha1 23:01 Green, Juan José, RN is Primary Nurse. bm8 23:04 Missed attempt(s): 20 gauge in left antecubital area. kmf 23:04 Door closed. Noise minimized. Visitors limited. Lights dimmed. Warm blanket given. kmf Pillow given. 23:15 Chest Single View XRAY In Process Unspecified. EDMS 23:17 CBC with Diff Sent. kmf 23:17 CMP Sent. kmf 23:17 Lipase Sent. kmf 23:17 Alcohol Level Sent. kmf 23:17 Diet: Patient given ice chips. Tolerated well. kmf 23:18 AMMONIA Sent. kmf 23:18 Ptt, Activated Sent. kmf 23:30 Arm band placed on right wrist. bm8 23:47 No provider procedures requiring assistance completed. Assisted provider with central bm8 line placement. Set up central line tray. Triple lumen line placed in right internal jugular. Line placed by Kamlesh Keenan MD Placement verified by CXR, blood return, Dressed with 4X4s, Tape, Tegaderm, Blood was collected. Patient tolerated well. Before procedure, did Practitioner(s) obtain informed consent? Yes. Patient \T\ family education about procedure, CLABSI prevention and S/S of infection? No. Time-out/Briefing performed prior to start of procedure? Yes. Was handwashing/sanitizing done immediately prior to procedure? Yes. Was patient positioned to in a way to prevent air embolism? Yes. Was procedure site sterilized? Yes, with Was the site allowed to dry? Yes. Was local anesthetic and/or sedation utilized? Yes. During the procedure, did the Practitioner(s) maintain a sterile field? Yes. Were unused ports clamped during insertion? Yes. Was a 2nd qualified MD obtained after 3 unsuccessful insertion attempts? No. Was blood aspirated from each lumen? Yes. After the procedure, did the Practitioner(s) clean the site and apply a sterile dressing? Yes. Initial lab(s) drawn, by ED staff, sent to lab. EKG done, by ED staff, reviewed by Kamlesh Keenan MD. Maintain EMS IV. Dressing intact. Good blood return noted. Site clean \T\ dry. Gauge \T\ site: 20g RAC. Flushed with 10 mL NS. Patient maintains SpO2 saturation greater than 95% on room air. 23:47 Patient has correct armband on for positive identification. Placed in gown. Bed in low bm8 position. Call light in reach. Side rails up X2. Adult w/ patient. Client placed on continuous cardiac and pulse oximetry monitoring. NIBP monitoring applied. secured entrance monitor on. Pulse ox on. NIBP on. Sitter at bedside. 07/13 00:19 Dalton cath inserted, using sterile technique, 18 Fr., 20 Fr., by ia, balloon inflated, bm8 to gravity drainage, urine specimen collected. returned bridger urine. Patient tolerated well. 00:23 Chest Abd Pelvis Wo Con In Process Unspecified. EDMS 00:55 Consent for blood and/or blood product transfusion explained by staff, signed by bm8 spouse, Procedure consent explained by staff, explained by physician, signed by spouse. 01:39 Transfer initatiated \[id number]. 05:05 Patient transferred, IV remains in place. bm8 05:05 Provided Education on: need for transfer. bm8 Administered Medications: 07/12 23:01 Not Given (Physician Discretion): mupirocinointment 2 % 1 application Topical bm8 continuous; Pea sized amount to both nares 23:35 Drug: NS 0.9% IV 1000 ml IV at 1 bolus Per protocol; to be given as a bolus over 60 bm8 minutes Route: IV; Rate: 1 bolus; Site: right antecubital; 07/13 02:16 Follow up: Response: No adverse reaction; IV Status: Completed infusion; IV Intake: bm8 1000ml 07/12 23:39 Drug: tranexamic acid 1000 mg IV at calculated rate once; administer at a rate not to bm8 exceed 100 mg per min Route: IV; Rate: calculated rate; Site: Other; 07/13 02:17 Follow up: Response: No adverse reaction; IV Status: Completed infusion; IV Intake: bm8 100ml 07/12 23:40 Drug: Pantoprazole IV 8 mg/hr IV at 25 ml/hr continuous; (Standard dilution is 80 mg in bm8 250 mL NS) Route: IV; Rate: 25 ml/hr; Site: Other; 07/13 05:08 Follow up: Response: No adverse reaction; IV Status: Infusion continued upon transfer bm8 07/12 23:41 Drug: Famotidine IVP 20 mg IVP once; dilute with 10 mL 0.9% NaCl; give over 2 minutes bm8 Route: IVP; Site: right antecubital; 07/13 02:18 Follow up: Response: No adverse reaction [facility] [place] 07/12 23:41 Drug: Ondansetron IVP 4 mg IVP once; over 2 minutes Route: IVP; Site: right antecubital;8 07/13 02:18 Follow up: Response: No adverse reaction 8 07/12 23:41 Drug: Pantoprazole IVP 80 mg IVP once Route: IVP; Site: right antecubital; 8 07/13 02:18 Follow up: Response: No adverse reaction [facility] [place] 07/12 23:41 Drug: NS 0.9% IV 1000 ml IV at 125 ml/hr Per protocol; to be given as a bolus over 60 bm8 minutes Route: IV; Rate: 125 ml/hr; Site: right antecubital; 07/13 02:17 Follow up: Response: No adverse reaction; IV Status: Order to discontinue infusion; IV bm8 Intake: 500ml 00:20 Drug: Albumin IVPB 25 grams 100 ml IVPB once; (Note: Albumin 25% concentration) Volume: bm8 100 ml; Route: IVPB; Site: Other; 02:18 Follow up: Response: No adverse reaction; IV Status: Completed infusion; IV Intake: bm8 100ml 01:19 Drug: Norepinephrine IV 0.1 mcg/kg/min IV at calculated rate See Administration bm8 Instructions; (Standard concentration 4 mg / 250 mL D5W); Recommended max rate 3 mcg/kg/min; Titrate 0.05 mcg/kg/min as often as every 5 minutes to achieve goal (see titration policy); Goal parameter MAP greater than 65 mmHg. Route: IV; Rate: calculated rate; Site: Other; 05:08 Follow up: Response: No adverse reaction; IV Status: Infusion continued upon transfer 8 02:15 Drug: D5-NS IV 1000 ml IV at 125 ml/hr continuous Route: IV; Rate: 125 ml/hr; Site: [facility] [place] right antecubital; 05:08 Follow up: Response: No adverse reaction; IV Status: Infusion continued upon transfer 8 02:16 Drug: Cefepime IVPB 2 grams IVPB at 200 ml/hr once over 30 mins; (mix in NS 100 mL) [facility] [place] Route: IVPB; Rate: 200 ml/hr; Infused Over: 30 mins; Site: right antecubital; 02:57 Follow up: Response: No adverse reaction; IV Status: Completed infusion; IV Intake: bm8 100ml 02:29 Drug: Calcium Gluconate IVPB 2 grams IVPB once over 60 mins; (mix in NS 100 mL) Route: bm8 IVPB; Infused Over: 60 mins; Site: Other; 05:07 Follow up: Response: No adverse reaction; IV Status: Completed infusion; IV Intake: bm8 100ml 02:58 Drug: vancoMYCIN IVPB 2 grams IVPB at calculated rate once Route: IVPB; Rate: bm8 calculated rate; Site: right antecubital; 05:08 Follow up: Response: No adverse reaction; IV Status: Infusion continued upon transfer bm8 Medication: 07/12 23:47 VIS not applicable for this client. bm8 07/13 00:55 Blood products: PRBCs X 1 unit given. See transfusion record. bm8 Intake: 02:16 IV: 1000ml; Total: 1000ml. bm8 02:17 IV: 100ml; Total: 1100ml. bm8 02:17 IV: 500ml; Total: 1600ml. bm8 02:18 IV: 100ml; Total: 1700ml. bm8 02:57 IV: 100ml; Total: 1800ml. bm8 05:07 IV: 100ml; Total: 1900ml. bm8 Outcome: 01:50 ER care complete, transfer ordered by . sp4 05:05 Transferred by helicopter to [facility], Transfer form completed. bm8 X-rays sent w/ patient. 05:05 Condition: stable 05:05 Instructed on 05:05 Instructed on follow up and referral plans. the need for transfer, Demonstrated understanding of follow-up care, medications, 05:10 Patient left the ED. bm8 Signatures: Dispatcher [employer] EDMS Alida Lindsey [email or web address] Sabrina Saavedra RN RN ha1 Kamlesh Keenan MD MD sp4 Lissa Ca [facility] Juan José Green RN RN bm8 Sunitha De La Vega Corrections: (The following items were deleted from the chart) 07/12 23:18 23:17 Urinalysis+U.LAB.BRZ drawn and sent. [facility] EDMS 01/05 00:24 00:23 ABO/RH typing drawn and sent. [facility] EDNH 00:24 00:23 Antibody Screen drawn and sent. [facility] EDNH 00:24 00:23 PACKED RBC LEUKORED+BB.LAB.BRZ drawn and sent. [facility] EDMS 01:25 01:15 BP 69 / 52; Pulse 88bpm; Resp 17bpm; Pulse Ox 100% 4 lpm Nasal Cannula; Temp bm8 98.8F; Pain 0/10, Adult; bm8
[2024-07-13] MEDS ORDERED: CEFEPIME 2 GM VIAL ONE (01:56)
[2024-07-13] MEDS ORDERED: VANCOMYCIN 1 GM/VIAL ONE (01:56)
[2024-07-13] MEDS ORDERED: NA CHLORIDE 0.9% 100 ML ONE (01:56)
[2024-07-13] MEDS ORDERED: D5 0.9 NS 1,000 ML IV ONE (01:57)
[2024-07-13] MEDS ORDERED: CALCIUM GLUCONATE 1 GM IVPB 2 GM/100 ML BAG IV ONE (02:25)
[2024-07-13 04:23] LABS: Blood Morphology Comment NOTED (NOT SEEN); Macrocytosis 3+; Platelet Estimate ADEQ; White Blood Cell Scan OK (OK)
[2024-07-13 05:22] VITALS: O2SAT 100
[2024-07-13 05:30] VITALS: BP 101/50; TEMP 98.8
--- NOTE | 2024-07-13 06:14 | RAD REPORT ---
CLINICAL HISTORY: Right central line. COMPARISON: None. TECHNIQUE: XR CHEST 1 VIEW 07/12/2024 11:03 PM SALES ENGINEER FINDINGS: Cardiac silhouette is normal in size. There is probable right basilar airspace disease. There is a mo derate right pleural effusion. There is no pneumothorax. There are no acute osseous findings. Right IJ central line tip is in the mid SVC. IMPRESSION: No pneumothorax following right IJ central line placement. Electronically signed by: Colin Hastings MD 07/13/2024 12:14 AM SALES ENGINEER RP Due to temporary technical issues with the PACS/[employer] reporting system, reports are being pipo d by the in-house radiologist without review as a courtesy to ensure prompt reporting the interpreting radiologist is fully responsible for the content of the report. Transcribed Date/Time: 07/13/2024 6:14 AM
--- NOTE | 2024-07-21 11:15 | EKG ---
Test Date: 2024-07-13 Test Time: 01:36:27 Technology Applications Teacher: DEBBIE MEASUREMENT RESULTS: Intervals: Rate: 92 CA: 98 QRSD: 110 QT: 428 QTc: 529 [place]: P: 39 CA: 98 QRS: 39 T: 67 INTERPRETIVE STATEMENTS: Sinus rhythm with short CA Prolonged QT Abnormal ECG Compared to ECG 04/27/2020 12:20:35 Short CA interval now present Electronically Signed On 07-21-24 11:02:22 STOCK COUNTER by Dax Jefferson
== END 2024-07-13 05:10 | disposition short-term general hospital (02) ==
LOC: ER 22:11
PROC: 30233N1 Transfusion of Nonautologous Red Blood Cells into Peripheral Vein, Percutaneous Approach (ICD-10-PCS; principal; 2024-07-13)
DX: K72.00 Acute and subacute hepatic failure without coma (principal); N17.9 Acute kidney failure, unspecified; R57.1 Hypovolemic shock; R65.21 Severe sepsis with septic shock; M72.6 Necrotizing fasciitis; L02.215 Cutaneous abscess of perineum; K76.9 Liver disease, unspecified; G92.9 Unspecified toxic encephalopathy; R18.8 Other ascites; J90 Pleural effusion, not elsewhere classified; F10.20 Alcohol dependence, uncomplicated; F17.210 Nicotine dependence, cigarettes, uncomplicated
CPT/HCPCS: 36415; 36430; 36556; 51702; 71045; 71250; 74176; 80053; 80307; 81001; 82077; 82140; 83690; 85025; 85610; 85730; 86850; 86900; 86901; 86920; 93005; 99291; J0612; J0692; J2405; J2470; J7030; J7040; J7042; J7050; P9016; P9047